=== PATIENT | female | born 1940 | race American Indian/Alaskan Native ===

== ENCOUNTER 2020-09-01 16:36 | Emergency (ER) | payer MEDICARE ==
--- NOTE | 2020-09-01 17:16 | Emergency Department Report ---
ED General Adult HPI - General Chief complaint: Medical Clearance Stated complaint: MEDICAL CLEARNCE Time Seen by Provider: 09/01/20 16:48 Source: EMS Mode of arrival: Stretcher Limitations: Altered Mental Status - History of Present Illness Initial comments: The patient presents to the emergency department from [facility] for direct admission to the geriatric psychiatric unit. Patient has a history of dementia, hypertension, schizophrenia and has homicidal and suicidal thoughts per reports. Patient was supposed to come to the emergency department on Saturday via reports but she did not arrive until today. Patient is alert and looking around the room but would not participate in the interview process. -: unknown Consistency: constant Improves with: none Worsens with: none Associated Symptoms: denies other symptoms Treatments Prior to Arrival: none - Related Data Allergies Allergy/AdvReac Type Severity Reaction Status Date / Time Fish Containing Products Allergy Unknown Verified 09/01/20 17:28 ED Review of Systems ROS: Stated complaint: MEDICAL CLEARNCE Other details as noted in HPI Comment: Unobtainable due to pts medical conditions (Dementia) ED Past Medical Hx - Social History Smoking Status: Unknown if ever smoked ED Physical Exam - General Limitations: Altered Mental Status General appearance: alert, in no apparent distress - Head Head exam: Present: atraumatic, normocephalic - Eye Eye exam: Present: normal appearance, PERRL, EOMI - ENT ENT exam: Present: mucous membranes moist - Neck Neck exam: Present: normal inspection - Respiratory Respiratory exam: Present: normal lung sounds bilaterally. Absent: respiratory distress - Cardiovascular Cardiovascular Exam: Present: regular rate, normal rhythm. Absent: systolic murmur, diastolic murmur, rubs, gallop - GI/Abdominal GI/Abdominal exam: Present: soft, normal bowel sounds. Absent: distended, tenderness - Extremities Exam Extremities exam: Present: normal inspection - Back Exam Back exam: Present: normal inspection - Neurological Exam Neurological exam: Present: alert, oriented X3, CN II-XII intact. Absent: motor sensory deficit - Psychiatric Psychiatric exam: Present: normal affect, normal mood - Skin Skin exam: Present: warm, dry, intact, normal color. Absent: rash ED Course Vital Signs 09/01/20 09/01/20 17:12 17:30 Temperature 97.7 F Pulse Rate 72 Respiratory 16 Rate Blood Pressure 140/68 [Right] O2 Sat by Pulse 96 Oximetry ED Medical Decision Making - Lab Data Result diagrams: 09/01/20 17:20 09/01/20 17:20 Lab Results 09/01/20 09/01/20 09/01/20 Range/Units 17:20 17:20 17:20 WBC 5.9 (4.5-11.0) K/mm3 RBC 4.25 (3.65-5.03) M/mm3 Hgb 13.8 (10.1-14.3) gm/dl Hct 41.4 (30.3-42.9) % MCV 97 (79-97) fl MCH 33 H (28-32) pg MCHC 33 (30-34) % RDW 14.2 (13.2-15.2) % Plt Count 175 (140-440) K/mm3 Lymph % (Auto) 37.3 H (13.4-35.0) % [place] % (Auto) 8.1 H (0.0-7.3) % Eos % (Auto) 2.7 (0.0-4.3) % Baso % (Auto) 0.5 (0.0-1.8) % Lymph # (Auto) 2.2 (1.2-5.4) K/mm3 [place] # (Auto) 0.5 (0.0-0.8) K/mm3 Eos # (Auto) 0.2 (0.0-0.4) K/mm3 Baso # (Auto) 0.0 (0.0-0.1) K/mm3 Seg Neutrophils % 51.4 (40.0-70.0) % Seg Neutrophils # 3.0 (1.8-7.7) K/mm3 Sodium 144 (137-145) mmol/L Potassium 3.4 L (3.6-5.0) mmol/L Chloride 107.1 H (98-107) mmol/L Carbon Dioxide 27 (22-30) mmol/L Anion Gap 13 mmol/L BUN 11 (7-17) mg/dL Creatinine 0.5 L (0.6-1.2) mg/dL Estimated GFR > 60 ml/min BUN/Creatinine Ratio 22 % Glucose 127 H (65-100) mg/dL Calcium 9.1 (8.4-10.2) mg/dL Total Bilirubin 0.20 (0.1-1.2) mg/dL AST 21 (5-40) units/L ALT 36 (7-56) units/L Alkaline Phosphatase 55 (35-129) units/L Total Protein 7.0 (6.3-8.2) g/dL Albumin 3.5 L (3.9-5) g/dL Albumin/Globulin Ratio 1.0 % Urine Color (Yellow) Urine Turbidity (Clear) Urine pH (5.0-7.0) Ur Specific [place] (1.003-1.030) Urine Protein (Negative) mg/dL Urine Glucose (UA) (Negative) mg/dL Urine Ketones (Negative) mg/dL Urine Blood (Negative) Urine Nitrite (Negative) Urine Bilirubin (Negative) Urine Urobilinogen (<2.0) mg/dL Ur Leukocyte Esterase (Negative) Urine WBC (Auto) (0.0-6.0) /HPF Urine RBC (Auto) (0.0-6.0) /HPF U Epithel Cells (Auto) (0-13.0) /HPF Urine Bacteria (Auto) (Negative) /HPF Urine Mucus /HPF Urine Yeast (Budding) /HPF Salicylates < 0.3 L (2.8-20.0) mg/dL Urine Opiates Screen Urine Methadone Screen Acetaminophen (10.0-30.0) ug/mL Ur Barbiturates Screen Ur Phencyclidine Scrn Ur Amphetamines Screen U Benzodiazepines Scrn Urine Cocaine Screen U Marijuana (THC) Screen Drugs of Abuse Note Plasma/Serum Alcohol (0-0.07) % 09/01/20 09/01/20 09/01/20 Range/Units 17:20 17:20 Unknown WBC (4.5-11.0) K/mm3 RBC (3.65-5.03) M/mm3 Hgb (10.1-14.3) gm/dl Hct (30.3-42.9) % MCV (79-97) fl MCH (28-32) pg MCHC (30-34) % RDW (13.2-15.2) % Plt Count (140-440) K/mm3 Lymph % (Auto) (13.4-35.0) % [place] % (Auto) (0.0-7.3) % Eos % (Auto) (0.0-4.3) % Baso % (Auto) (0.0-1.8) % Lymph # (Auto) (1.2-5.4) K/mm3 [place] # (Auto) (0.0-0.8) K/mm3 Eos # (Auto) (0.0-0.4) K/mm3 Baso # (Auto) (0.0-0.1) K/mm3 Seg Neutrophils % (40.0-70.0) % Seg Neutrophils # (1.8-7.7) K/mm3 Sodium (137-145) mmol/L Potassium (3.6-5.0) mmol/L Chloride (98-107) mmol/L Carbon Dioxide (22-30) mmol/L Anion Gap mmol/L BUN (7-17) mg/dL Creatinine (0.6-1.2) mg/dL Estimated GFR ml/min BUN/Creatinine Ratio % Glucose (65-100) mg/dL Calcium (8.4-10.2) mg/dL Total Bilirubin (0.1-1.2) mg/dL AST (5-40) units/L ALT (7-56) units/L Alkaline Phosphatase (35-129) units/L Total Protein (6.3-8.2) g/dL Albumin (3.9-5) g/dL Albumin/Globulin Ratio % Urine Color Yellow (Yellow) Urine Turbidity Slightly-cloudy (Clear) Urine pH 7.0 (5.0-7.0) Ur Specific [place] 1.013 (1.003-1.030) Urine Protein <15 mg/dl (Negative) mg/dL Urine Glucose (UA) Neg (Negative) mg/dL Urine Ketones Neg (Negative) mg/dL Urine Blood Neg (Negative) Urine Nitrite Neg (Negative) Urine Bilirubin Neg (Negative) Urine Urobilinogen 4.0 (<2.0) mg/dL Ur Leukocyte Esterase Tr (Negative) Urine WBC (Auto) 15.0 H (0.0-6.0) /HPF Urine RBC (Auto) 2.0 (0.0-6.0) /HPF U Epithel Cells (Auto) 2.0 (0-13.0) /HPF Urine Bacteria (Auto) 2+ (Negative) /HPF Urine Mucus 2+ /HPF Urine Yeast (Budding) 1+ /HPF Salicylates (2.8-20.0) mg/dL Urine Opiates Screen Urine Methadone Screen Acetaminophen 5.0 L (10.0-30.0) ug/mL Ur Barbiturates Screen Ur Phencyclidine Scrn Ur Amphetamines Screen U Benzodiazepines Scrn Urine Cocaine Screen U Marijuana (THC) Screen Drugs of Abuse Note Plasma/Serum Alcohol < 0.01 (0-0.07) % 09/01/20 Range/Units Unknown WBC (4.5-11.0) K/mm3 RBC (3.65-5.03) M/mm3 Hgb (10.1-14.3) gm/dl Hct (30.3-42.9) % MCV (79-97) fl MCH (28-32) pg MCHC (30-34) % RDW (13.2-15.2) % Plt Count (140-440) K/mm3 Lymph % (Auto) (13.4-35.0) % [place] % (Auto) (0.0-7.3) % Eos % (Auto) (0.0-4.3) % Baso % (Auto) (0.0-1.8) % Lymph # (Auto) (1.2-5.4) K/mm3 [place] # (Auto) (0.0-0.8) K/mm3 Eos # (Auto) (0.0-0.4) K/mm3 Baso # (Auto) (0.0-0.1) K/mm3 Seg Neutrophils % (40.0-70.0) % Seg Neutrophils # (1.8-7.7) K/mm3 Sodium (137-145) mmol/L Potassium (3.6-5.0) mmol/L Chloride (98-107) mmol/L Carbon Dioxide (22-30) mmol/L Anion Gap mmol/L BUN (7-17) mg/dL Creatinine (0.6-1.2) mg/dL Estimated GFR ml/min BUN/Creatinine Ratio % Glucose (65-100) mg/dL Calcium (8.4-10.2) mg/dL Total Bilirubin (0.1-1.2) mg/dL AST (5-40) units/L ALT (7-56) units/L Alkaline Phosphatase (35-129) units/L Total Protein (6.3-8.2) g/dL Albumin (3.9-5) g/dL Albumin/Globulin Ratio % Urine Color (Yellow) Urine Turbidity (Clear) Urine pH (5.0-7.0) Ur Specific [place] (1.003-1.030) Urine Protein (Negative) mg/dL Urine Glucose (UA) (Negative) mg/dL Urine Ketones (Negative) mg/dL Urine Blood (Negative) Urine Nitrite (Negative) Urine Bilirubin (Negative) Urine Urobilinogen (<2.0) mg/dL Ur Leukocyte Esterase (Negative) Urine WBC (Auto) (0.0-6.0) /HPF Urine RBC (Auto) (0.0-6.0) /HPF U Epithel Cells (Auto) (0-13.0) /HPF Urine Bacteria (Auto) (Negative) /HPF Urine Mucus /HPF Urine Yeast (Budding) /HPF Salicylates (2.8-20.0) mg/dL Urine Opiates Screen Presumptive negative Urine Methadone Screen Presumptive negative Acetaminophen (10.0-30.0) ug/mL Ur Barbiturates Screen Presumptive negative Ur Phencyclidine Scrn Presumptive negative Ur Amphetamines Screen Presumptive negative U Benzodiazepines Scrn Presumptive negative Urine Cocaine Screen Presumptive negative U Marijuana (THC) Screen Presumptive negative Drugs of Abuse Note Disclamer Plasma/Serum Alcohol (0-0.07) % - Medical Decision Making Abx given in ED Patient will be discharged to [facility] Critical care attestation.: If time is entered above; I have spent that time in minutes in the direct care of this critically ill patient, excluding procedure time. ED Disposition Clinical Impression: Dementia, Schizophrenia, UTI (urinary tract infection), Suicidal ideation Disposition: [id number]/TX-65 PSY HOSP/PSY UNIT Is pt being admited?: Yes Does the pt Need Aspirin: No Condition: Stable Referrals: PRIMARY CARE, [Primary Care Provider] - 3-5 Days
[2020-09-01 17:39] LABS: Basophils % (Auto) 0.5 % (0.0-1.8); Eosinophils # (Auto) 0.2 K/mm3 (0.0-0.4); Eosinophils % (Auto) 2.7 % (0.0-4.3); Hematocrit 41.4 % (30.3-42.9); Hemoglobin 13.8 gm/dl (10.1-14.3); Lymphocytes # (Auto) 2.2 K/mm3 (1.2-5.4); Lymphocytes % (Auto) 37.3 % (13.4-35.0); Mean Corpuscular HGB Conc 33 % (30-34); Mean Corpuscular Volume 97 fl (79-97); Monocytes # (Auto) 0.5 K/mm3 (0.0-0.8); Monocytes % (Auto) 8.1 % (0.0-7.3); Platelet Count 175 K/mm3 (140-440); Red Blood Count 4.25 M/mm3 (3.65-5.03); Red Cell Distribution Width 14.2 % (13.2-15.2)
[2020-09-01 18:02] LABS: Alanine Aminotransferase 36 units/L (7-56); Albumin 3.5 g/dL (3.9-5); Blood Urea Nitrogen 11 mg/dL (7-17); Calcium 9.1 mg/dL (8.4-10.2); Hemolysis Index 13
[2020-09-01 18:03] LABS: BUN/Creatinine Ratio 22
[2020-09-01 19:37] LABS: Bacteria,Urine 2+ /HPF (Negative); Bilirubin,Urine NEG (Negative); Blood,Urine NEG (Negative); Color,Urine Yellow (Yellow); Mucus,Urine 2+ /HPF; Protein,Urine <15 mg/dL mg/dL (Negative)
[2020-09-01 19:42] LABS: Amphetamine Screen,Urine PRESUMPTIVE NEGATIVE; Benzodiazepines Screen,Urine PRESUMPTIVE NEGATIVE; Cannabinoid Screen,Urine PRESUMPTIVE NEGATIVE; Cocaine Screen,Urine PRESUMPTIVE NEGATIVE; Methadone Screen,Urine PRESUMPTIVE NEGATIVE; Opiate Screen,Urine PRESUMPTIVE NEGATIVE
[2020-09-01] MEDS ORDERED: SULFAMETHOXAZOLE/TRIMETHOPRIM 800/160MG DS TAB PO ONE (20:03)
[2020-09-01 20:27] VITALS: BP 137/75
== END 2020-09-01 20:23 ==
LOC: ED 16:36
DX: F03.90 Unspecified dementia, unspecified severity, without behavioral disturbance, psychotic disturbance, mood disturbance, and anxiety (principal); F20.9 Schizophrenia, unspecified; N39.0 Urinary tract infection, site not specified; R45.851 Suicidal ideations; Z91.013 Allergy to seafood
CPT/HCPCS: 36415; 80053; 80307; 80320; 81001; 85025; 87086; G0480

== ENCOUNTER 2020-09-01 18:01 | Inpatient (IN) | payer MEDICARE ==
[2020-09-02 07:50] LABS: Chol/HDL Ratio 5.04 %
[2020-09-02] MEDS ORDERED: ACETAMINOPHEN 650 MG PO PRN (11:24)
[2020-09-02] MEDS ORDERED: LORazepam 0.5 MG TAB PO PRN (11:30)
--- NOTE | 2020-09-02 11:34 | History and Physical Report ---
GP History & Physical - History of Present Illness Date of admission: 09/01/20 Date of Examination: 09/02/20 Reason for Admission: Failure of Outpatient Treatment, Unable to care for self History of Present Illness: Hayde Moreau is an 80y/o female who was admitted to [facility] for verbal and psychical aggression per admission note. I attempted to interview the patient today, she doesn't respond to any questions. She looks around as I am speaking to her as If I'm not there. PAST PSYCHIATRIC HISTORY: Unable to obtain PAST MEDICAL HISTORY: None reported Family Psychiatric History: None reported or documented SOCIAL HISTORY Unable to obtain REVIEW OF SYSTEMS Unable to obtain MENTAL STATUS EXAMINATION Unable to obtain Assessment and Plan (1) Dementia with Behavioral Disturbance Current Visit: Yes Status: Acute Treatment Plan Patient admitted for inpatient psychiatric evaluation, medication adjustment and close monitoring The patient's behavior, mood, sleep and appetite will be closely monitored. Patient enrolled in individual and group therapeutic sessions and encouraged to attend. Patient provided with a safe and structured environment. Patient's physical health needs will be addressed by the Hospitalist. Hospitalist Consulted Labs including CBC, CMP, Lipid profile and Hemoglobin A1C levels ordered for baseline reference Restarted home meds Social Assessment will be completed and the Mold Insert Changer will work with patient and family to ensure a suitable and safe disposition Medication adjustment will be made as clinically indicated Usual Wellness Anglican/Preservation: - Start Trazodone 50 mg po QHS & 50 mg po QHS PRN between 10 PM & 2 AM for insomnia - Start Melatonin 5 mg po QHS to promote circadian rhythm - Start [place]-3 for brain health, reduce impulsivity, and as adjunctive treatment for mood disorder, continue upon discharge given overall benefits. - Start B1 prophylaxis with 200 mg po for 5 days Estimated days: 5 Post hospital care: primary care provider, psychiatric provider Legal Status: Voluntary Reaction to Hospitalization: Accepting Legal Status: Voluntary Reaction to Hospitalization: Accepting Medications and Allergies Allergies Allergy/AdvReac Type Severity Reaction Status Date / Time Fish Containing Products Allergy Unknown Verified 09/01/20 17:28 Home Medications Medication Instructions Recorded Confirmed Last Taken Type Acetaminophen [Tylenol] 650 mg PO Q4HR PRN 09/02/20 09/02/20 Unknown History Divalproex Sprinkle [DepaKOTE 250 mg PO TID 09/02/20 09/02/20 Unknown History SPRINKLE] Haloperidol Lactate 0.25 ml PO DAILY 09/02/20 09/02/20 Unknown History LORazepam [Lorazepam] 0.25 mg PO Q12HR PRN 09/02/20 09/02/20 Unknown History Melatonin 5 mg PO HS 09/02/20 09/02/20 Unknown History Memantine [Namenda] 10 mg PO DAILY 09/02/20 09/02/20 Unknown History amLODIPine [Norvasc] 10 mg PO DAILY 09/02/20 09/02/20 Unknown History donepeziL [Aricept] 10 mg PO HS 09/02/20 09/02/20 Unknown History Active Meds: Active Medications Acetaminophen (Tylenol) 650 mg PO Q4H PRN PRN Reason: Pain, Mild (1-3) Amlodipine Besylate (Amlodipine) 10 mg PO DAILY [facility] Divalproex Sodium (Depakote Sprinkle) 250 mg PO TID [facility] Donepezil HCl (Aricept) 10 mg PO HS [facility] Haloperidol Lactate (Haldol) 0.5 mg PO DAILY [facility] Lorazepam (Ativan) 0.25 mg PO Q12HR PRN PRN Reason: Anxiety Melatonin (Melatonin) 5 mg PO QHS [facility] Memantine (Memantine) 10 mg PO DAILY [facility] Miscellaneous Medication (Acetaminophen [Tylenol]) 650 mg PO Q4HR PRN PRN Reason: Pain, Mild (1-3) Results - Results Labs/Vitals: Laboratory Last Values Hemoglobin A1c 5.7 % (4-6) 09/02/20 06:43 Triglycerides 80 mg/dL (2-149) 09/02/20 06:43 Cholesterol 217 mg/dL (50-199) H 09/02/20 06:43 LDL Cholesterol Direct 161 mg/dL (50-130) H 09/02/20 06:43 HDL Cholesterol 43 mg/dL (40-59) 09/02/20 06:43 Cholesterol/HDL Ratio 5.04 % 09/02/20 06:43 TSH 1.900 mlU/mL (0.270-4.200) 09/02/20 06:43 Last Vital Signs Temp 97.4 F L 09/02/20 07:01 Pulse 60 09/02/20 07:01 Resp 16 09/02/20 07:01 BP 114/61 09/02/20 07:01 Pulse Ox 97 09/02/20 07:01 Physical Examination - Constitutional Vitals: Vital Signs Temp Pulse Resp BP Pulse Ox 97.4 F L 60 16 114/61 97 09/02/20 07:01 09/02/20 07:01 09/02/20 07:01 09/02/20 07:01 09/02/20 07:01 Temperature -Last 24 Hours Temperature 97.4 F Temperature 97.8 F Mental Status Exam - Vital signs Last Vital Signs Temp 97.4 F L 09/02/20 07:01 Pulse 60 09/02/20 07:01 Resp 16 09/02/20 07:01 BP 114/61 09/02/20 07:01 Pulse Ox 97 09/02/20 07:01 Physician Certification - Certification Statement Physician Certification Statement: This is an acknowledgement statement that HAYDE MOREAU is a 80 year old F who requires inpatient psychiatric admission for treatment which could reasonably be expected to improve the patient's condition for Estimated period of time patient will need to remain in the hospital: [ ] Plan for post-hospital care: [ ]
[2020-09-02] MEDS ORDERED: ACETAMINOPHEN 325 MG TAB PO PRN (12:00)
--- NOTE | 2020-09-02 12:07 | Consultation ---
History of Present Illness - Reason for Consult Consult date: 09/02/20 Requesting physician: JOSE DÍAZ - History of Present Illness 80 YO Female with Cerebral Atherosclerosis, Vascular Dementia with Bahevioral Disturbance admitted to [facility] for Psychiatric stabilization. Patient seen and evaluated in the recreation room. Patient minimally cooperative with exam and interview. No reported nursing events. Past History Past Medical History: other (See HPI) Past Surgical History: No surgical history, Other (Reviewed) Social history: single Family history: no significant family history Medications and Allergies Allergies Allergy/AdvReac Type Severity Reaction Status Date / Time Fish Containing Products Allergy Unknown Verified 09/01/20 17:28 Home Medications Medication Instructions Recorded Confirmed Last Taken Type Acetaminophen [Tylenol] 650 mg PO Q4HR PRN 09/02/20 09/02/20 Unknown History Divalproex Sprinkle [DepaKOTE 250 mg PO TID 09/02/20 09/02/20 Unknown History SPRINKLE] Haloperidol Lactate 0.25 ml PO DAILY 09/02/20 09/02/20 Unknown History LORazepam [Lorazepam] 0.25 mg PO Q12HR PRN 09/02/20 09/02/20 Unknown History Melatonin 5 mg PO HS 09/02/20 09/02/20 Unknown History Memantine [Namenda] 10 mg PO DAILY 09/02/20 09/02/20 Unknown History amLODIPine [Norvasc] 10 mg PO DAILY 09/02/20 09/02/20 Unknown History donepeziL [Aricept] 10 mg PO HS 09/02/20 09/02/20 Unknown History Active Meds: Active Medications Acetaminophen (Tylenol) 650 mg PO Q4H PRN PRN Reason: Pain, Mild (1-3) Amlodipine Besylate (Amlodipine) 10 mg PO DAILY [facility] Divalproex Sodium (Depakote Sprinkle) 250 mg PO TID [facility] Donepezil HCl (Aricept) 10 mg PO HS [facility] Haloperidol Lactate (Haldol) 0.5 mg PO DAILY [facility] Lorazepam (Ativan) 0.25 mg PO Q12HR PRN PRN Reason: Anxiety Melatonin (Melatonin) 5 mg PO QHS [facility] Memantine (Memantine) 10 mg PO DAILY FIDENC[facility] Review of Systems ROS unobtainable: due to mental status Exam - Constitutional Vitals: Temp Pulse Resp BP Pulse Ox 97.4 F L 60 16 114/61 97 09/02/20 07:01 09/02/20 07:01 09/02/20 07:01 09/02/20 07:01 09/02/20 07:01 General appearance: Present: no acute distress, well-nourished - EENT Eyes: Present: PERRL ENT: clear oral mucosa, hearing decreased - Neck Neck: Present: supple, normal ROM - Respiratory Respiratory effort: normal Respiratory: bilateral: CTA - Cardiovascular Heart Sounds: Present: S1 & S2. Absent: rub, click - Extremities Extremities: pulses symmetrical, No edema Peripheral Pulses: within normal limits - Abdominal General gastrointestinal: Present: soft, non-tender, non-distended, normal bowel sounds Female genitourinary: Present: normal - Integumentary Integumentary: Present: clear, warm, dry - Musculoskeletal Musculoskeletal: generalized weakness - Neurologic Neurologic: CNII-XII intact, moves all extremities Results - Labs Labs: Abnormal lab results 09/02/20 Range/Units 06:43 Cholesterol 217 H (50-199) mg/dL LDL Cholesterol Direct 161 H (50-130) mg/dL Assessment and Plan - Patient Problems (1) Vascular dementia of acute onset with behavioral disturbance Current Visit: Yes Status: Acute Plan to address problem: Verbal prompting, verbal redirection, benzodiazepine therapy as clinically indicated, (2) Cerebral atherosclerosis Current Visit: Yes Status: Acute Plan to address problem: Supportive care, risk factor reduction, low-cholesterol diet.
[2020-09-02 12:21] LABS: Hepatitis B Surface Antigen Non-Reactive (Negative); Hepatitis C Virus Antibody Non-Reactive (NonReactive)
[2020-09-02] MEDS: amLODIPine 10 MG TAB PO SCH (12:32)
[2020-09-02] MEDS: HALOPERIDOL LACTATE 10 MG/5 ML ORAL LIQD PO SCH (12:33)
[2020-09-02] MEDS: MEMANTINE 10 MG TAB PO SCH (12:33)
[2020-09-02] MEDS: DIVALPROEX SPRINKLE 125 MG CAP PO SCH ×2 (13:35→20:27)
[2020-09-02] MEDS: DONEPEZIL 10 MG TAB PO SCH (21:23)
[2020-09-02] MEDS: MELATONIN 5 MG TAB PO SCH (21:24)
[2020-09-02] MEDS ORDERED: NON-FORMULARY EACH (Melatonin 5 MG) PO SCH (22:00)
--- NOTE | 2020-09-03 09:15 | Progress Note ---
Subjective Date of service: 09/03/20 Principal diagnosis: Dementia with Behavioral Distrubance Subjective Comment: During my interview with the patient, she is lying down. She is confused. She's calm. She says she's "fine" when asked. After that she begins to mumble and make incomprehensible sounds. REVIEW OF SYSTEMS Unable to obtain MENTAL STATUS EXAMINATION Unable to obtain Assessment and Plan (1) Dementia with Behavioral Disturbance Current Visit: Yes Status: Acute Treatment Plan Patient admitted for inpatient psychiatric evaluation, medication adjustment and close monitoring The patient's behavior, mood, sleep and appetite will be closely monitored. Patient enrolled in individual and group therapeutic sessions and encouraged to attend. Patient provided with a safe and structured environment. Patient's physical health needs will be addressed by the Hospitalist. Hospitalist Consulted Labs including CBC, CMP, Lipid profile and Hemoglobin A1C levels ordered for baseline reference Started Risperidone 0.25mg po BID Social Assessment will be completed and the Conformal Pad Former will work with patient and family to ensure a suitable and safe disposition Medication adjustment will be made as clinically indicated Usual Wellness Hoahaoism/Preservation: - Start Trazodone 50 mg po QHS & 50 mg po QHS PRN between 10 PM & 2 AM for insomnia - Start Melatonin 5 mg po QHS to promote circadian rhythm - Start [place]-3 for brain health, reduce impulsivity, and as adjunctive treatment for mood disorder, continue upon discharge given overall benefits. - Start B1 prophylaxis with 200 mg po for 5 days Estimated days: 5 Post hospital care: primary care provider, psychiatric provider Legal Status: Voluntary Reaction to Hospitalization: Accepting Medications and Allergies Allergies Allergy/AdvReac Type Severity Reaction Status Date / Time Fish Containing Products Allergy Unknown Verified 09/01/20 17:28 Home Medications Medication Instructions Recorded Confirmed Last Taken Type Acetaminophen [Tylenol] 650 mg PO Q4HR PRN 09/02/20 09/02/20 Unknown History Divalproex Sprinkle [DepaKOTE 250 mg PO TID 09/02/20 09/02/20 Unknown History SPRINKLE] Haloperidol Lactate 0.25 ml PO DAILY 09/02/20 09/02/20 Unknown History LORazepam [Lorazepam] 0.25 mg PO Q12HR PRN 09/02/20 09/02/20 Unknown History Melatonin 5 mg PO HS 09/02/20 09/02/20 Unknown History Memantine [Namenda] 10 mg PO DAILY 09/02/20 09/02/20 Unknown History amLODIPine [Norvasc] 10 mg PO DAILY 09/02/20 09/02/20 Unknown History donepeziL [Aricept] 10 mg PO HS 09/02/20 09/02/20 Unknown History Active Meds: Active Medications Acetaminophen (Tylenol) 650 mg PO Q4H PRN PRN Reason: Pain, Mild (1-3) Amlodipine Besylate (Amlodipine) 10 mg PO DAILY [facility] Last Admin: 09/02/20 12:32 Dose: 10 mg Documented by: Divalproex Sodium (Depakote Sprinkle) 250 mg PO TID [facility] Last Admin: 09/02/20 20:27 Dose: 250 mg Documented by: Donepezil HCl (Aricept) 10 mg PO [facility] Last Admin: 09/02/20 21:23 Dose: 10 mg Documented by: Haloperidol Lactate (Haldol) 0.5 mg PO DAILY [facility] Last Admin: 09/02/20 12:33 Dose: 0.5 mg Documented by: Lorazepam (Ativan) 0.25 mg PO Q12HR PRN PRN Reason: Anxiety Melatonin (Melatonin) 5 mg PO QHS [facility] Last Admin: 09/02/20 21:24 Dose: 5 mg Documented by: Memantine (Memantine) 10 mg PO DAILY [facility] Last Admin: 09/02/20 12:33 Dose: 10 mg Documented by: Results - Results Labs/Vitals: Laboratory Last Values Hemoglobin A1c 5.7 % (4-6) 09/02/20 06:43 Triglycerides 80 mg/dL (2-149) 09/02/20 06:43 Cholesterol 217 mg/dL (50-199) H 09/02/20 06:43 LDL Cholesterol Direct 161 mg/dL (50-130) H 09/02/20 06:43 HDL Cholesterol 43 mg/dL (40-59) 09/02/20 06:43 Cholesterol/HDL Ratio 5.04 % 09/02/20 06:43 TSH 1.900 mlU/mL (0.270-4.200) 09/02/20 06:43 Hepatitis A IgM Ab Non-reactive (NonReactive) 09/02/20 06:43 Hep Bs Antigen Non-reactive (Negative) 09/02/20 06:43 Hep B Core IgM Ab Non-reactive (NonReactive) 09/02/20 06:43 Hepatitis C Antibody Non-reactive (NonReactive) 09/02/20 06:43 Last Vital Signs Temp 98.7 F 09/02/20 19:16 Pulse 68 09/02/20 21:39 Resp 20 09/02/20 19:16 BP 137/60 09/02/20 19:16 Pulse Ox 97 09/02/20 21:39
[2020-09-03] MEDS: amLODIPine 10 MG TAB PO SCH (10:40)
[2020-09-03] MEDS: MEMANTINE 10 MG TAB PO SCH (10:43)
[2020-09-03] MEDS: risperiDONE 0.25 MG TAB PO SCH ×2 (10:43→21:20)
[2020-09-03] MEDS: DIVALPROEX SPRINKLE 125 MG CAP PO SCH ×3 (10:43→20:12)
[2020-09-03] MEDS: HALOPERIDOL LACTATE 10 MG/5 ML ORAL LIQD PO SCH (10:44)
[2020-09-03] MEDS: DONEPEZIL 10 MG TAB PO SCH (21:19)
[2020-09-03] MEDS: MELATONIN 5 MG TAB PO SCH (21:19)
--- NOTE | 2020-09-04 09:36 | Progress Note ---
Subjective Date of service: 09/04/20 Principal diagnosis: Dementia with Behavioral Distrubance Subjective Comment: During my interview with the patient, she is sitting in the dayroom being fed by the tech. She is confused and mumbles. She is unable to give any insight as to how she feels. She makes some eye contact as I'm speaking to her. She says she feels "fine" when asked. Her answers after that are incomprehensible. REVIEW OF SYSTEMS Unable to obtain MENTAL STATUS EXAMINATION Unable to obtain Assessment and Plan (1) Dementia with Behavioral Disturbance Current Visit: Yes Status: Acute Treatment Plan Patient admitted for inpatient psychiatric evaluation, medication adjustment and close monitoring The patient's behavior, mood, sleep and appetite will be closely monitored. Patient enrolled in individual and group therapeutic sessions and encouraged to attend. Patient provided with a safe and structured environment. Patient's physical health needs will be addressed by the Hospitalist. Hospitalist Consulted Labs including CBC, CMP, Lipid profile and Hemoglobin A1C levels ordered for baseline reference Started Risperidone 0.25mg po BID yesterday No changes today Social Assessment will be completed and the Heater Furnace will work with patient and family to ensure a suitable and safe disposition Medication adjustment will be made as clinically indicated Usual Wellness Sikhism/Preservation: - Start Trazodone 50 mg po QHS & 50 mg po QHS PRN between 10 PM & 2 AM for insomnia - Start Melatonin 5 mg po QHS to promote circadian rhythm - Start [place]-3 for brain health, reduce impulsivity, and as adjunctive treatment for mood disorder, continue upon discharge given overall benefits. - Start B1 prophylaxis with 200 mg po for 5 days Estimated days: 4 Post hospital care: primary care provider, psychiatric provider Legal Status: Voluntary Reaction to Hospitalization: Accepting Medications and Allergies Allergies Allergy/AdvReac Type Severity Reaction Status Date / Time Fish Containing Products Allergy Unknown Verified 09/01/20 17:28 Home Medications Medication Instructions Recorded Confirmed Last Taken Type Acetaminophen [Tylenol] 650 mg PO Q4HR PRN 09/02/20 09/02/20 Unknown History Divalproex Sprinkle [DepaKOTE 250 mg PO TID 09/02/20 09/02/20 Unknown History SPRINKLE] Haloperidol Lactate 0.25 ml PO DAILY 09/02/20 09/02/20 Unknown History LORazepam [Lorazepam] 0.25 mg PO Q12HR PRN 09/02/20 09/02/20 Unknown History Melatonin 5 mg PO HS 09/02/20 09/02/20 Unknown History Memantine [Namenda] 10 mg PO DAILY 09/02/20 09/02/20 Unknown History amLODIPine [Norvasc] 10 mg PO DAILY 09/02/20 09/02/20 Unknown History donepeziL [Aricept] 10 mg PO HS 09/02/20 09/02/20 Unknown History Active Meds: Active Medications Acetaminophen (Tylenol) 650 mg PO Q4H PRN PRN Reason: Pain, Mild (1-3) Amlodipine Besylate (Amlodipine) 10 mg PO DAILY [facility] Last Admin: 09/03/20 10:40 Dose: 10 mg Documented by: Divalproex Sodium (Depakote Sprinkle) 250 mg PO TID [facility] Last Admin: 09/03/20 20:12 Dose: 250 mg Documented by: Donepezil HCl (Aricept) 10 mg PO HS [facility] Last Admin: 09/03/20 21:19 Dose: 10 mg Documented by: Haloperidol Lactate (Haldol) 0.5 mg PO DAILY [facility] Last Admin: 09/03/20 10:44 Dose: 0.5 mg Documented by: Lorazepam (Ativan) 0.25 mg PO Q12HR PRN PRN Reason: Anxiety Melatonin (Melatonin) 5 mg PO QHS [facility] Last Admin: 09/03/20 21:19 Dose: 5 mg Documented by: Memantine (Memantine) 10 mg PO DAILY [facility] Last Admin: 09/03/20 10:43 Dose: 10 mg Documented by: Risperidone (Risperdal) 0.25 mg PO BID [facility] Last Admin: 09/03/20 21:20 Dose: 0.25 mg Documented by: Results - Results Labs/Vitals: Laboratory Last Values Hemoglobin A1c 5.7 % (4-6) 09/02/20 06:43 Triglycerides 80 mg/dL (2-149) 09/02/20 06:43 Cholesterol 217 mg/dL (50-199) H 09/02/20 06:43 LDL Cholesterol Direct 161 mg/dL (50-130) H 09/02/20 06:43 HDL Cholesterol 43 mg/dL (40-59) 09/02/20 06:43 Cholesterol/HDL Ratio 5.04 % 09/02/20 06:43 TSH 1.900 mlU/mL (0.270-4.200) 09/02/20 06:43 Hepatitis A IgM Ab Non-reactive (NonReactive) 09/02/20 06:43 Hep Bs Antigen Non-reactive (Negative) 09/02/20 06:43 Hep B Core IgM Ab Non-reactive (NonReactive) 09/02/20 06:43 Hepatitis C Antibody Non-reactive (NonReactive) 09/02/20 06:43 Last Vital Signs Temp 98.4 F 09/03/20 19:26 Pulse 74 09/03/20 19:26 Resp 20 09/03/20 19:26 BP 155/79 09/03/20 19:26 Pulse Ox 98 09/03/20 19:26
[2020-09-04] MEDS: risperiDONE 0.25 MG TAB PO SCH ×2 (10:19→21:09)
[2020-09-04] MEDS: MEMANTINE 10 MG TAB PO SCH (10:19)
[2020-09-04] MEDS: DIVALPROEX SPRINKLE 125 MG CAP PO SCH ×3 (10:19→20:29)
[2020-09-04] MEDS: HALOPERIDOL LACTATE 10 MG/5 ML ORAL LIQD PO SCH (10:21)
[2020-09-04] MEDS: amLODIPine 10 MG TAB PO SCH (10:25)
--- NOTE | 2020-09-04 18:38 | Progress Note ---
Assessment and Plan - Patient Problems (1) Vascular dementia of acute onset with behavioral disturbance Current Visit: Yes Status: Acute Plan to address problem: Verbal prompting, verbal redirection, benzodiazepine therapy as clinically indicated, (2) Cerebral atherosclerosis Current Visit: Yes Status: Acute Plan to address problem: Supportive care, risk factor reduction, low-cholesterol diet. History Interval history: 80 YO Female with Cerebral Atherosclerosis, Vascular Dementia with Behavioral Disturbance admitted to [facility] for Psychiatric stabilization. Patient seen and evaluated in the recreation room. Patient minimally cooperative with exam and interview. No reported nursing events. Patient reports wanting to see a dentist to have her teeth checked out "" Hospitalist Physical - Constitutional Vitals: Temp Pulse Resp BP Pulse Ox 98.4 F 70 20 93/62 98 09/03/20 19:26 09/04/20 10:25 09/03/20 19:26 09/04/20 10:25 09/03/20 19:26 General appearance: Present: no acute distress, well-nourished - EENT Eyes: Present: PERRL ENT: hearing intact - Neck Neck: Present: supple - Respiratory Respiratory: bilateral: CTA - Cardiovascular Rhythm: regular - Extremities Extremities: no ischemia Peripheral Pulses: within normal limits - Abdominal General gastrointestinal: soft, non-tender, non-distended - Integumentary Integumentary: Present: clear, dry - Psychiatric Psychiatric: cooperative - Neurologic Neurologic: CNII-XII intact Results - Labs Labs: Laboratory Last Values Hemoglobin A1c 5.7 % (4-6) 09/02/20 06:43 Triglycerides 80 mg/dL (2-149) 09/02/20 06:43 Cholesterol 217 mg/dL (50-199) H 09/02/20 06:43 LDL Cholesterol Direct 161 mg/dL (50-130) H 09/02/20 06:43 HDL Cholesterol 43 mg/dL (40-59) 09/02/20 06:43 Cholesterol/HDL Ratio 5.04 % 09/02/20 06:43 TSH 1.900 mlU/mL (0.270-4.200) 09/02/20 06:43 Hepatitis A IgM Ab Non-reactive (NonReactive) 09/02/20 06:43 Hep Bs Antigen Non-reactive (Negative) 09/02/20 06:43 Hep B Core IgM Ab Non-reactive (NonReactive) 09/02/20 06:43 Hepatitis C Antibody Non-reactive (NonReactive) 09/02/20 06:43 Luke/IV: Voiding Method Diaper Active Medications - Current Medications Current Medications: Generic Name Dose Route Start Last Admin Trade Name Freq PRN Reason Stop Dose Admin Acetaminophen 650 mg 09/02/20 12:00 Tylenol PO Q4H PRN Pain, Mild (1-3) Amlodipine Besylate 10 mg 09/02/20 12:00 09/04/20 10:25 Amlodipine PO Not Given DAILY [facility] Divalproex Sodium 250 mg 09/02/20 14:00 09/04/20 14:24 Depakote Sprinkle PO 250 mg TID [facility] Administration Donepezil HCl 10 mg 09/02/20 22:00 09/03/20 21:19 Aricept PO 10 mg HS [facility] Administration Haloperidol Lactate 0.5 mg 09/02/20 12:00 09/04/20 10:21 Haldol PO 0.5 mg DAILY [facility] Administration Lorazepam 0.25 mg 09/02/20 11:30 Ativan PO Q12HR PRN Anxiety Melatonin 5 mg 09/02/20 22:00 09/03/20 21:19 Melatonin PO 5 mg QHS [facility] Administration Memantine 10 mg 09/02/20 12:00 09/04/20 10:19 Memantine PO 10 mg DAILY [facility] Administration Risperidone 0.25 mg 09/03/20 10:00 09/04/20 10:19 Risperdal PO 0.25 mg BID [facility] Administration Nutrition/Malnutrition Assess - Dietary Evaluation Nutrition/Malnutrition Findings: Nutrition Notes Start: 09/02/20 10:53 [place]: Status: Active Protocol: Document 09/02/20 10:53 CASSI (Rec: 09/02/20 11:06 CASSI [id number]) Co-Sign 09/02/20 10:53 LM Nutrition Notes Need for Assessment generated from: MD Order Initial or Follow up Assessment Other Pertinent Diagnosis dementia, schizophrenia, suicidal ideation, UTI Current Diet Regular Labs/Tests Reviewed Pertinent Medications Reviewed Height 5 ft 6 in Weight 74.12 kg [place] Body Weight (kg) 59.09 BMI 26.4 Weight Status Appropriate Subjective/Other Information MD consult for poor intake. Unable to speak with pt d/t AMS. Per RN, pt consuming 35% meals, difficulty chewing d/t missing teeth. RN requested clear Ensure. Burn Absent Trauma Absent Difficulty In Chewing Food Allergy Yes Current % PO Poor (25-49%) Minimum of two criteria No Muscle Mass Mild Depletion (non-severe) #1 Nutrition Diagnosis Inadequate oral intake Etiology difficulty chewing As Evidenced by Signs and Symptoms pt consuming 35% meals Is patient on ventilator? No Is Patient Ambulatory and/or Out of Bed Yes REE-([facility]-ambulatory/OOB) [ [id number] [id number]] Calculation Used for Recommendations [facility] Additional Notes Pro:74-89 g (1-1.2 g/kg) Fluid: 1 ml/kcal Nutrition Intervention Change Diet Order: Pureed diet Add Supplement/Snack (indicate name/kcal Ensure Clear Daily /protein ) Provides kCal: 240 Provides Protein (gm) 8 Goal #1 Meet at least 80% energy and protein needs via PO and ONS intakes Anticipated Discharge Needs: Unable to determine at this time Follow-Up By: 09/05/20 Additional Comments F/U for intakes and diet tolerance
[2020-09-04] MEDS: MELATONIN 5 MG TAB PO SCH (21:09)
[2020-09-04] MEDS: DONEPEZIL 10 MG TAB PO SCH (21:09)
[2020-09-05] MEDS: DIVALPROEX SPRINKLE 125 MG CAP PO SCH ×3 (08:54→21:30)
[2020-09-05] MEDS: HALOPERIDOL LACTATE 10 MG/5 ML ORAL LIQD PO SCH (09:43)
[2020-09-05] MEDS: amLODIPine 10 MG TAB PO SCH (09:48)
[2020-09-05] MEDS: risperiDONE 0.25 MG TAB PO SCH ×2 (09:49→22:14)
[2020-09-05] MEDS: MEMANTINE 10 MG TAB PO SCH (09:50)
--- NOTE | 2020-09-05 12:38 | Progress Note ---
Subjective Date of service: 09/05/20 Principal diagnosis: Dementia with Behavioral Distrubance Subjective Comment: During my interview with the patient, she is sitting in the dayroom. She is confused and mumbles. She is unable to give any insight as to how she feels. She makes some eye contact as I'm speaking to her. She says she feels "alright." She's attempting to say something else but it's incomprehensible. The patient is mumbling and looking around. REVIEW OF SYSTEMS Unable to obtain MENTAL STATUS EXAMINATION Unable to obtain Assessment and Plan (1) Dementia with Behavioral Disturbance Current Visit: Yes Status: Acute Treatment Plan Patient admitted for inpatient psychiatric evaluation, medication adjustment and close monitoring The patient's behavior, mood, sleep and appetite will be closely monitored. Patient enrolled in individual and group therapeutic sessions and encouraged to attend. Patient provided with a safe and structured environment. Patient's physical health needs will be addressed by the Hospitalist. Hospitalist Consulted Labs including CBC, CMP, Lipid profile and Hemoglobin A1C levels ordered for baseline reference Increased Risperidone 0.5mg po BID Social Assessment will be completed and the Plastic Surgery Specialist will work with patient and family to ensure a suitable and safe disposition Medication adjustment will be made as clinically indicated Usual Wellness Roman Catholic/Preservation: - Start Trazodone 50 mg po QHS & 50 mg po QHS PRN between 10 PM & 2 AM for insomnia - Start Melatonin 5 mg po QHS to promote circadian rhythm - Start [place]-3 for brain health, reduce impulsivity, and as adjunctive treatment for mood disorder, continue upon discharge given overall benefits. - Start B1 prophylaxis with 200 mg po for 5 days Estimated days: 4 Post hospital care: primary care provider, psychiatric provider Legal Status: Voluntary Reaction to Hospitalization: Accepting Medications and Allergies Allergies Allergy/AdvReac Type Severity Reaction Status Date / Time Fish Containing Products Allergy Unknown Verified 09/01/20 17:28 Home Medications Medication Instructions Recorded Confirmed Last Taken Type Acetaminophen [Tylenol] 650 mg PO Q4HR PRN 09/02/20 09/02/20 Unknown History Divalproex Sprinkle [DepaKOTE 250 mg PO TID 09/02/20 09/02/20 Unknown History SPRINKLE] Haloperidol Lactate 0.25 ml PO DAILY 09/02/20 09/02/20 Unknown History LORazepam [Lorazepam] 0.25 mg PO Q12HR PRN 09/02/20 09/02/20 Unknown History Melatonin 5 mg PO HS 09/02/20 09/02/20 Unknown History Memantine [Namenda] 10 mg PO DAILY 09/02/20 09/02/20 Unknown History amLODIPine [Norvasc] 10 mg PO DAILY 09/02/20 09/02/20 Unknown History donepeziL [Aricept] 10 mg PO HS 09/02/20 09/02/20 Unknown History Active Meds: Active Medications Acetaminophen (Tylenol) 650 mg PO Q4H PRN PRN Reason: Pain, Mild (1-3) Amlodipine Besylate (Amlodipine) 10 mg PO DAILY [facility] Last Admin: 09/05/20 09:48 Dose: 10 mg Documented by: Divalproex Sodium (Depakote Sprinkle) 250 mg PO TID [facility] Last Admin: 09/05/20 08:54 Dose: 250 mg Documented by: Donepezil HCl (Aricept) 10 mg PO HS [facility] Last Admin: 09/04/20 21:09 Dose: 10 mg Documented by: Haloperidol Lactate (Haldol) 0.5 mg PO DAILY [facility] Last Admin: 09/05/20 09:43 Dose: 0.5 mg Documented by: Lorazepam (Ativan) 0.25 mg PO Q12HR PRN PRN Reason: Anxiety Melatonin (Melatonin) 5 mg PO QHS [facility] Last Admin: 09/04/20 21:09 Dose: 5 mg Documented by: Memantine (Memantine) 10 mg PO DAILY [facility] Last Admin: 09/05/20 09:50 Dose: 10 mg Documented by: Risperidone (Risperdal) 0.25 mg PO BID [facility] Last Admin: 09/05/20 09:49 Dose: 0.25 mg Documented by: Results - Results Labs/Vitals: Laboratory Last Values Hemoglobin A1c 5.7 % (4-6) 09/02/20 06:43 Triglycerides 80 mg/dL (2-149) 09/02/20 06:43 Cholesterol 217 mg/dL (50-199) H 09/02/20 06:43 LDL Cholesterol Direct 161 mg/dL (50-130) H 09/02/20 06:43 HDL Cholesterol 43 mg/dL (40-59) 09/02/20 06:43 Cholesterol/HDL Ratio 5.04 % 09/02/20 06:43 TSH 1.900 mlU/mL (0.270-4.200) 09/02/20 06:43 Hepatitis A IgM Ab Non-reactive (NonReactive) 09/02/20 06:43 Hep Bs Antigen Non-reactive (Negative) 09/02/20 06:43 Hep B Core IgM Ab Non-reactive (NonReactive) 09/02/20 06:43 Hepatitis C Antibody Non-reactive (NonReactive) 09/02/20 06:43 Last Vital Signs Temp 97.9 F 09/04/20 08:51 Pulse 83 09/05/20 09:48 Resp 18 09/04/20 08:51 BP 108/64 09/05/20 09:48 Pulse Ox 97 09/04/20 08:51
[2020-09-05] MEDS: DONEPEZIL 10 MG TAB PO SCH (22:14)
[2020-09-05] MEDS: MELATONIN 5 MG TAB PO SCH (22:15)
[2020-09-06] MEDS: DIVALPROEX SPRINKLE 125 MG CAP PO SCH ×3 (09:54→20:33)
[2020-09-06] MEDS: risperiDONE 0.25 MG TAB PO SCH ×2 (09:55→21:33)
[2020-09-06] MEDS: MEMANTINE 10 MG TAB PO SCH (09:55)
[2020-09-06] MEDS: amLODIPine 10 MG TAB PO SCH (09:56)
[2020-09-06] MEDS: HALOPERIDOL LACTATE 10 MG/5 ML ORAL LIQD PO SCH (09:56)
--- NOTE | 2020-09-06 11:35 | Progress Note ---
Subjective Date of service: 09/06/20 Principal diagnosis: Dementia with Behavioral Distrubance Subjective Comment: During my interview with the patient, is lying in bed. She is awake. She is calm and cooperative. When asked how was she feeling she says, "I'm alright my eye just hurting." She points to her eye. There is not obvious problems: no redness or tearing of her eye. She starts mumbling and just staring at me as I continue to talk to her. REVIEW OF SYSTEMS Unable to obtain MENTAL STATUS EXAMINATION Unable to obtain Assessment and Plan (1) Dementia with Behavioral Disturbance Current Visit: Yes Status: Acute Treatment Plan Patient admitted for inpatient psychiatric evaluation, medication adjustment and close monitoring The patient's behavior, mood, sleep and appetite will be closely monitored. Patient enrolled in individual and group therapeutic sessions and encouraged to attend. Patient provided with a safe and structured environment. Patient's physical health needs will be addressed by the Hospitalist. Hospitalist Consulted Labs including CBC, CMP, Lipid profile and Hemoglobin A1C levels ordered for melanie duran reference Increased Risperidone 0.5mg po BID Yesterday No changes made today Social Assessment will be completed and the Telecommunications Cable Jointer will work with john t and family to ensure a suitable and safe disposition Medication adjustment will be made as clinically indicated Usual Wellness Mosque/Preservation: - Start Trazodone 50 mg po QHS & 50 mg po QHS PRN between 10 PM & 2 AM for insomnia - Start Melatonin 5 mg po QHS to promote circadian rhythm - Start [place]-3 for brain health, reduce impulsivity, and as adjunctive treatment for mood disorder, continue upon discharge given overall benefits. - Start B1 prophylaxis with 200 mg po for 5 days Estimated days: 4 Post hospital care: primary care provider, psychiatric provider Medications and Allergies Allergies Allergy/AdvReac Type Severity Reaction Status Date / Time Fish Containing Products Allergy Unknown Verified 09/01/20 17:28 Home Medications Medication Instructions Recorded Confirmed Last Taken Type Acetaminophen [Tylenol] 650 mg PO Q4HR PRN 09/02/20 09/02/20 Unknown History Divalproex Sprinkle [DepaKOTE 250 mg PO TID 09/02/20 09/02/20 Unknown History SPRINKLE] Haloperidol Lactate 0.25 ml PO DAILY 09/02/20 09/02/20 Unknown History LORazepam [Lorazepam] 0.25 mg PO Q12HR PRN 09/02/20 09/02/20 Unknown History Melatonin 5 mg PO HS 09/02/20 09/02/20 Unknown History Memantine [Namenda] 10 mg PO DAILY 09/02/20 09/02/20 Unknown History amLODIPine [Norvasc] 10 mg PO DAILY 09/02/20 09/02/20 Unknown History donepeziL [Aricept] 10 mg PO HS 09/02/20 09/02/20 Unknown History Active Meds: Active Medications Acetaminophen (Tylenol) 650 mg PO Q4H PRN PRN Reason: Pain, Mild (1-3) Amlodipine Besylate (Amlodipine) 10 mg PO DAILY [facility] Last Admin: 09/06/20 09:56 Dose: 10 mg Documented by: Divalproex Sodium (Depakote Sprinkle) 250 mg PO TID [facility] Last Admin: 09/06/20 09:54 Dose: 250 mg Documented by: Donepezil HCl (Aricept) 10 mg PO HS [facility] Last Admin: 09/05/20 22:14 Dose: 10 mg Documented by: Haloperidol Lactate (Haldol) 0.5 mg PO DAILY [facility] Last Admin: 09/06/20 09:56 Dose: 0.5 mg Documented by: Lorazepam (Ativan) 0.25 mg PO Q12HR PRN PRN Reason: Anxiety Melatonin (Melatonin) 5 mg PO QHS [facility] Last Admin: 09/05/20 22:15 Dose: 5 mg Documented by: Memantine (Memantine) 10 mg PO DAILY [facility] Last Admin: 09/06/20 09:55 Dose: 10 mg Documented by: Risperidone (Risperdal) 0.5 mg PO BID [facility] Last Admin: 09/06/20 09:55 Dose: 0.5 mg Documented by: Results - Results Labs/Vitals: Laboratory Last Values Hemoglobin A1c 5.7 % (4-6) 09/02/20 06:43 Triglycerides 80 mg/dL (2-149) 09/02/20 06:43 Cholesterol 217 mg/dL (50-199) H 09/02/20 06:43 LDL Cholesterol Direct 161 mg/dL (50-130) H 09/02/20 06:43 HDL Cholesterol 43 mg/dL (40-59) 09/02/20 06:43 Cholesterol/HDL Ratio 5.04 % 09/02/20 06:43 TSH 1.900 mlU/mL (0.270-4.200) 09/02/20 06:43 Hepatitis A IgM Ab Non-reactive (NonReactive) 09/02/20 06:43 Hep Bs Antigen Non-reactive (Negative) 09/02/20 06:43 Hep B Core IgM Ab Non-reactive (NonReactive) 09/02/20 06:43 Hepatitis C Antibody Non-reactive (NonReactive) 09/02/20 06:43 Last Vital Signs Temp 98.1 F 09/06/20 08:58 Pulse 68 09/06/20 08:58 Resp 18 09/06/20 08:58 BP 107/74 09/06/20 08:58 Pulse Ox 92 09/06/20 08:58
[2020-09-06] MEDS: DONEPEZIL 10 MG TAB PO SCH (21:34)
[2020-09-06] MEDS: MELATONIN 5 MG TAB PO SCH (21:40)
--- NOTE | 2020-09-07 09:40 | Discharge Summary ---
Providers - Providers Date of Admission: 09/01/20 22:15 Date of discharge: 09/07/20 Attending physician: JOSE DÍAZ MD 09/01/20 18:51 Consult to Physician [CONS] Routine Comment: Consulting Provider: CORRY HERMAN Physician Instructions: Reason For Exam: Medical Management 09/02/20 10:23 Consult to Dietitian/Nutrition [CONS] Routine Physician Instructions: Reason For Exam: Reason for Consult: poor intake 09/02/20 10:24 Physical Therapy Evaluation and Treat [CONS] Routine Comment: Reason For Exam: unsteady gait Primary care physician: SECURITY VEHICLE PATROL OFFICER Hospitalization Reason for admission: Agression Admitting Diagnosis: F02.81 - DEMENTIA IN OTH DISEASES CLASSD ELSWHR W BEHAVIORAL DISTURB Condition: Stable Hospital course: The patient was provided inpatient psychiatric treatment with safe and supportive care, medication adjustment, adverse effect monitoring, medical evaluations, medical treatments, assessment and psycho-education. The patient's mood, cognition, behavior, moral support are improved and stabilized. St the time of discharge, the patient had no endangering behavior and no debilitating adverse effects. The patient agreed on potential consequences of no treatment and gave informed consent. Disposition: [place]-03 [facility] Time spent for discharge: 38 Allergies/Adverse Reactions: Allergies Fish Containing Products Allergy (Verified 09/01/20 17:28) Unknown Vital Signs: Last Vital Signs Temp 97.5 F L 09/06/20 19:53 Pulse 67 09/06/20 19:53 Resp 20 09/06/20 19:53 BP 129/61 09/06/20 19:53 Pulse Ox 98 09/06/20 19:53 Last Lab: Laboratory Last Values Hemoglobin A1c 5.7 % (4-6) 09/02/20 06:43 Triglycerides 80 mg/dL (2-149) 09/02/20 06:43 Cholesterol 217 mg/dL (50-199) H 09/02/20 06:43 LDL Cholesterol Direct 161 mg/dL (50-130) H 09/02/20 06:43 HDL Cholesterol 43 mg/dL (40-59) 09/02/20 06:43 Cholesterol/HDL Ratio 5.04 % 09/02/20 06:43 TSH 1.900 mlU/mL (0.270-4.200) 09/02/20 06:43 Hepatitis A IgM Ab Non-reactive (NonReactive) 09/02/20 06:43 Hep Bs Antigen Non-reactive (Negative) 09/02/20 06:43 Hep B Core IgM Ab Non-reactive (NonReactive) 09/02/20 06:43 Hepatitis C Antibody Non-reactive (NonReactive) 09/02/20 06:43 Core Measure Documentation - Palliative Care Palliative Care/ Comfort Measures: Not Applicable - Core Measures Any of the following diagnoses?: none Exam - Constitutional Vitals: Temp Pulse Resp BP Pulse Ox 97.5 F L 67 20 129/61 98 09/06/20 19:53 09/06/20 19:53 09/06/20 19:53 09/06/20 19:53 09/06/20 19:53 General appearance: Present: no acute distress - EENT Eyes: Present: PERRL, EOM intact ENT: hearing intact, clear oral mucosa - Neck Neck: Present: supple, normal ROM - Respiratory Respiratory effort: normal Plan Activity: advance as tolerated Weight Bearing Status: Weight Bear as Tolerated Care Plan Goals: Maintain good and stable mental health Plan of Treatment: The patient should be compliant with medications, not to use drugs, and not to drink alcohol. The patient understands that if suicidal ideas, homicidal ideas or any endangering feeling arise, the patient should seek assistance including, but not limited to crisis hotline, and emergency room. Assessment: Dementia with behavioral disturbance Follow up with: PRIMARY CARE, [Primary Care Provider] - 7 Days Prescriptions: Melatonin 5 mg PO HS #30 risperiDONE [RisperDAL] 0.5 mg PO BID #120 tablet
[2020-09-07] MEDS: amLODIPine 10 MG TAB PO SCH (09:43)
[2020-09-07] MEDS: DIVALPROEX SPRINKLE 125 MG CAP PO SCH ×3 (09:43→20:45)
[2020-09-07] MEDS: HALOPERIDOL LACTATE 10 MG/5 ML ORAL LIQD PO SCH (09:43)
[2020-09-07] MEDS: risperiDONE 0.25 MG TAB PO SCH ×2 (09:43→21:01)
[2020-09-07] MEDS: MEMANTINE 10 MG TAB PO SCH (09:43)
--- NOTE | 2020-09-07 12:52 | Progress Note ---
Subjective Date of service: 09/07/20 Principal diagnosis: Dementia with Behavioral Distrubance Subjective Comment: During my interview with the patient, is sitting in the dayroom. She is awake and feeding herself. Her disposition is quiet. She says she's doing "alright." She smiles and asks me "how you doing?" She is calm and cooperative. She's not mumbling much today. Reason for continued inpatient treatment: The patient has not exhibited any behavioral issues. She will be discharged as soon as placement is secured once covid and cxr are negative. REVIEW OF SYSTEMS Unable to obtain MENTAL STATUS EXAMINATION Unable to obtain Assessment and Plan (1) Dementia with Behavioral Disturbance Current Visit: Yes Status: Acute Treatment Plan Patient admitted for inpatient psychiatric evaluation, medication adjustment and close monitoring The patient's behavior, mood, sleep and appetite will be closely monitored. Patient enrolled in individual and group therapeutic sessions and encouraged to attend. Patient provided with a safe and structured environment. Patient's physical health needs will be addressed by the Hospitalist. Hospitalist Consulted Labs including CBC, CMP, Lipid profile and Hemoglobin A1C levels ordered for baseline reference No changes made today Social Assessment will be completed and the Emulsion Coater will work with patient and family to ensure a suitable and safe disposition Medication adjustment will be made as clinically indicated Usual Wellness Jain/Preservation: - Start Trazodone 50 mg po QHS & 50 mg po QHS PRN between 10 PM & 2 AM for insomnia - Start Melatonin 5 mg po QHS to promote circadian rhythm - Start [place]-3 for brain health, reduce impulsivity, and as adjunctive treatment for mood disorder, continue upon discharge given overall benefits. - Start B1 prophylaxis with 200 mg po for 5 days Estimated days: 4 Post hospital care: primary care provider, psychiatric provider Medications and Allergies Allergies Allergy/AdvReac Type Severity Reaction Status Date / Time Fish Containing Products Allergy Unknown Verified 09/01/20 17:28 Home Medications Medication Instructions Recorded Confirmed Last Taken Type Acetaminophen [Tylenol] 650 mg PO Q4HR PRN 09/02/20 09/02/20 Unknown History Divalproex Sprinkle [Depakote 250 mg PO TID 09/02/20 09/02/20 Unknown History Sprinkle] LORazepam [Lorazepam] 0.25 mg PO Q12HR PRN 09/02/20 09/02/20 Unknown History Memantine 10 mg PO DAILY 09/02/20 09/02/20 Unknown History amLODIPine 10 mg PO DAILY 09/02/20 09/02/20 Unknown History donepeziL [Aricept] 10 mg PO HS 09/02/20 09/02/20 Unknown History Melatonin 5 mg PO HS #30 09/07/20 Unknown Rx risperiDONE [RisperDAL] 0.5 mg PO BID #120 tablet 09/07/20 Unknown Rx Active Meds: Active Medications Acetaminophen (Tylenol) 650 mg PO Q4H PRN PRN Reason: Pain, Mild (1-3) Amlodipine Besylate (Amlodipine) 10 mg PO DAILY [facility] Last Admin: 09/07/20 09:43 Dose: 10 mg Documented by: Divalproex Sodium (Depakote Sprinkle) 250 mg PO TID [facility] Last Admin: 09/07/20 09:43 Dose: 250 mg Documented by: Donepezil HCl (Aricept) 10 mg PO HS [facility] Last Admin: 09/06/20 21:34 Dose: 10 mg Documented by: Haloperidol Lactate (Haldol) 0.5 mg PO DAILY [facility] Last Admin: 09/07/20 09:43 Dose: 0.5 mg Documented by: Lorazepam (Ativan) 0.25 mg PO Q12HR PRN PRN Reason: Anxiety Melatonin (Melatonin) 5 mg PO QHS [facility] Last Admin: 09/06/20 21:40 Dose: 5 mg Documented by: Memantine (Memantine) 10 mg PO DAILY [facility] Last Admin: 09/07/20 09:43 Dose: 10 mg Documented by: Risperidone (Risperdal) 0.5 mg PO BID [facility] Last Admin: 09/07/20 09:43 Dose: 0.5 mg Documented by: Results - Results Labs/Vitals: Laboratory Last Values Hemoglobin A1c 5.7 % (4-6) 09/02/20 06:43 Triglycerides 80 mg/dL (2-149) 09/02/20 06:43 Cholesterol 217 mg/dL (50-199) H 09/02/20 06:43 LDL Cholesterol Direct 161 mg/dL (50-130) H 09/02/20 06:43 HDL Cholesterol 43 mg/dL (40-59) 09/02/20 06:43 Cholesterol/HDL Ratio 5.04 % 09/02/20 06:43 TSH 1.900 mlU/mL (0.270-4.200) 09/02/20 06:43 Hepatitis A IgM Ab Non-reactive (NonReactive) 09/02/20 06:43 Hep Bs Antigen Non-reactive (Negative) 09/02/20 06:43 Hep B Core IgM Ab Non-reactive (NonReactive) 09/02/20 06:43 Hepatitis C Antibody Non-reactive (NonReactive) 09/02/20 06:43 Last Vital Signs Temp 97.5 F L 09/06/20 19:53 Pulse 67 09/06/20 19:53 Resp 20 09/06/20 19:53 BP 129/61 09/06/20 19:53 Pulse Ox 98 09/06/20 19:53
--- NOTE | 2020-09-07 14:10 | XRay Report ---
CHEST 1 VIEW INDICATION / CLINICAL INFORMATION: FOR PLACEMENT r/o TB. COMPARISON: None available. FINDINGS: SUPPORT DEVICES: None. HEART / MEDIASTINUM: No significant abnormality. LUNGS / PLEURA: No significant pulmonary or pleural abnormality. No pneumothorax. ADDITIONAL FINDINGS: No significant additional findings. IMPRESSION: No evidence of acute cardiopulmonary disease. Specifically, no evidence of active or remote tuberculo sis. Signer Name: Poncho Vieyra MD Signed: 09/07/2020 2:06 PM Workstation Name: [id number]
[2020-09-07] MEDS: MELATONIN 5 MG TAB PO SCH (21:01)
[2020-09-07] MEDS: DONEPEZIL 10 MG TAB PO SCH (21:01)
--- NOTE | 2020-09-08 08:18 | Discharge Summary ---
Providers - Providers Date of Admission: 09/01/20 22:15 Date of discharge: 09/08/20 Attending physician: JOSE DÍAZ MD 09/01/20 18:51 Consult to Physician [CONS] Routine Comment: Consulting Provider: CORRY HERMAN Physician Instructions: Reason For Exam: Medical Management 09/02/20 10:23 Consult to Dietitian/Nutrition [CONS] Routine Physician Instructions: Reason For Exam: Reason for Consult: poor intake 09/02/20 10:24 Physical Therapy Evaluation and Treat [CONS] Routine Comment: Reason For Exam: unsteady gait Primary care physician: [facility] MACHINE INSPECTOR Hospitalization Reason for admission: aggression Admitting Diagnosis: F02.81 - DEMENTIA IN OTH DISEASES CLASSD ELSWHR W BEHAVIORAL DISTURB Condition: Stable Hospital course: The patient was provided inpatient psychiatric treatment with safe and supportive care, medication adjustment, adverse effect monitoring, medical evaluations, medical treatments, assessment and psycho-education. The patient's mood, cognition, behavior, moral support are improved and stabilized. St the time of discharge, the patient had no endangering behavior and no debilitating adverse effects. The patient agreed on potential consequences of no treatment and gave informed consent. Disposition: [place]-03 [facility] Time spent for discharge: 39 Allergies/Adverse Reactions: Allergies Fish Containing Products Allergy (Verified 09/01/20 17:28) Unknown Vital Signs: Last Vital Signs Temp 97.8 F 09/07/20 19:36 Pulse 67 09/07/20 19:36 Resp 20 09/07/20 19:36 BP 112/60 09/07/20 19:36 Pulse Ox 96 09/07/20 19:36 Last Lab: Laboratory Last Values Hemoglobin A1c 5.7 % (4-6) 09/02/20 06:43 Triglycerides 80 mg/dL (2-149) 09/02/20 06:43 Cholesterol 217 mg/dL (50-199) H 09/02/20 06:43 LDL Cholesterol Direct 161 mg/dL (50-130) H 09/02/20 06:43 HDL Cholesterol 43 mg/dL (40-59) 09/02/20 06:43 Cholesterol/HDL Ratio 5.04 % 09/02/20 06:43 TSH 1.900 mlU/mL (0.270-4.200) 09/02/20 06:43 Hepatitis A IgM Ab Non-reactive (NonReactive) 09/02/20 06:43 Hep Bs Antigen Non-reactive (Negative) 09/02/20 06:43 Hep B Core IgM Ab Non-reactive (NonReactive) 09/02/20 06:43 Hepatitis C Antibody Non-reactive (NonReactive) 09/02/20 06:43 Core Measure Documentation - Palliative Care Palliative Care/ Comfort Measures: Not Applicable - Core Measures Any of the following diagnoses?: none Exam - Constitutional Vitals: Temp Pulse Resp BP Pulse Ox 97.8 F 67 20 112/60 96 09/07/20 19:36 09/07/20 19:36 09/07/20 19:36 09/07/20 19:36 09/07/20 19:36 General appearance: Present: no acute distress - EENT Eyes: Present: PERRL, EOM intact ENT: hearing intact, clear oral mucosa - Neck Neck: Present: supple, normal ROM - Respiratory Respiratory effort: normal Plan Activity: advance as tolerated Weight Bearing Status: Weight Bear as Tolerated Care Plan Goals: Maintain good and stable mental health Plan of Treatment: The patient should be compliant with medications, not to use drugs, and not to drink alcohol. The patient understands that if suicidal ideas, homicidal ideas or any endangering feeling arise, the patient should seek assistance including, but not limited to crisis hotline, and emergency room. Assessment: Dementia with behavioral disturbance Follow up with: PRIMARY CARE, [Primary Care Provider] - 7 Days Prescriptions: Melatonin 5 mg PO HS #30 risperiDONE [RisperDAL] 0.5 mg PO BID #120 tablet
[2020-09-08] MEDS: DIVALPROEX SPRINKLE 125 MG CAP PO SCH ×2 (09:00→14:00)
[2020-09-08] MEDS: HALOPERIDOL LACTATE 10 MG/5 ML ORAL LIQD PO SCH (09:05)
[2020-09-08] MEDS: MEMANTINE 10 MG TAB PO SCH (09:06)
[2020-09-08] MEDS: risperiDONE 0.25 MG TAB PO SCH (09:07)
[2020-09-08] MEDS: amLODIPine 10 MG TAB PO SCH (09:07)
[2020-09-08 09:22] VITALS: BP 127/77
--- NOTE | 2020-09-08 13:34 | Progress Note ---
Assessment and Plan - Patient Problems (1) Vascular dementia of acute onset with behavioral disturbance Current Visit: Yes Status: Acute Plan to address problem: Verbal prompting, verbal redirection, benzodiazepine therapy as clinically indicated, (2) Cerebral atherosclerosis Current Visit: Yes Status: Acute Plan to address problem: Supportive care, risk factor reduction, low-cholesterol diet. History Interval history: 80 YO Female with Cerebral Atherosclerosis, Vascular Dementia with Behavioral Disturbance admitted to [facility] for Psychiatric stabilization. Patient seen and evaluated in the recreation room. Patient minimally cooperative with exam and interview. No reported nursing events. Patient denies pain. Hospitalist Physical - Constitutional Vitals: Temp Pulse Resp BP Pulse Ox 97.8 F 94 H 20 127/77 96 09/07/20 19:36 09/08/20 09:07 09/07/20 19:36 09/08/20 09:07 09/07/20 19:36 General appearance: Present: no acute distress - EENT Eyes: Present: PERRL, EOM intact ENT: hearing intact - Neck Neck: Present: supple - Respiratory Respiratory effort: normal Respiratory: bilateral: CTA - Cardiovascular Rhythm: regular Heart Sounds: Present: S1 & S2 - Extremities Extremities: No edema Peripheral Pulses: within normal limits - Abdominal General gastrointestinal: soft, non-tender, non-distended - Integumentary Integumentary: Present: clear, dry - Psychiatric Psychiatric: cooperative - Neurologic Neurologic: CNII-XII intact, gait normal - Allied Health Allied health notes reviewed: PT, OT Results - Labs Labs: Laboratory Last Values Hemoglobin A1c 5.7 % (4-6) 09/02/20 06:43 Triglycerides 80 mg/dL (2-149) 09/02/20 06:43 Cholesterol 217 mg/dL (50-199) H 09/02/20 06:43 LDL Cholesterol Direct 161 mg/dL (50-130) H 09/02/20 06:43 HDL Cholesterol 43 mg/dL (40-59) 09/02/20 06:43 Cholesterol/HDL Ratio 5.04 % 09/02/20 06:43 TSH 1.900 mlU/mL (0.270-4.200) 09/02/20 06:43 Hepatitis A IgM Ab Non-reactive (NonReactive) 09/02/20 06:43 Hep Bs Antigen Non-reactive (Negative) 09/02/20 06:43 Hep B Core IgM Ab Non-reactive (NonReactive) 09/02/20 06:43 Hepatitis C Antibody Non-reactive (NonReactive) 09/02/20 06:43 Luke/IV: Voiding Method Toilet Active Medications - Current Medications Current Medications: Generic Name Dose Route Start Last Admin Trade Name Freq PRN Reason Stop Dose Admin Acetaminophen 650 mg 09/02/20 12:00 Tylenol PO Q4H PRN Pain, Mild (1-3) Amlodipine Besylate 10 mg 09/02/20 12:00 09/08/20 09:07 Amlodipine PO 10 mg DAILY [facility] Administration Divalproex Sodium 250 mg 09/02/20 14:00 09/08/20 09:00 Depakote Sprinkle PO 250 mg TID [facility] Administration Donepezil HCl 10 mg 09/02/20 22:00 09/07/20 21:01 Aricept PO 10 mg HS [facility] Administration Haloperidol Lactate 0.5 mg 09/02/20 12:00 09/08/20 09:05 Haldol PO 0.5 mg DAILY [facility] Administration Lorazepam 0.25 mg 09/02/20 11:30 Ativan PO Q12HR PRN Anxiety Melatonin 5 mg 09/02/20 22:00 09/07/20 21:01 Melatonin PO 5 mg QHS [facility] Administration Memantine 10 mg 09/02/20 12:00 09/08/20 09:06 Memantine PO 10 mg DAILY [facility] Administration Risperidone 0.5 mg 09/05/20 22:00 09/08/20 09:07 Risperdal PO 0.5 mg BID [facility] Administration Nutrition/Malnutrition Assess - Dietary Evaluation Nutrition/Malnutrition Findings: Nutrition Notes Start: 09/02/20 10:53 Freq: Status: Active Protocol: Document 09/07/20 13:14 AL (Rec: 09/07/20 13:20 AL [id number]) Co-Sign 09/07/20 13:14 MK Nutrition Notes Initial or Follow up Reassessment Other Pertinent Diagnosis dementia, schizophrenia, suicidal ideation, UTI Current Diet Regular Labs/Tests Reviewed Pertinent Medications Reviewed Height 5 ft 6 in Weight 74.12 kg [place] Body Weight (kg) 59.09 BMI 26.4 Weight Status Appropriate Subjective/Other Information RN reports that patient is eating well. Patient is eating 50-75% of meals and drinking 75% of ONS, per chart. Percent of energy/protein needs met: 68%/60% Burn Absent Trauma Absent Difficulty In Swallowing,Chewing Food Allergy Yes Current % PO Negligible Minimum of two criteria No Muscle Mass Mild Depletion (non-severe) #1 Nutrition Diagnosis Inadequate oral intake As Evidenced by Signs and Symptoms pt consuming 50-75% of meals and 75% of ONS Diagnosis Progress(for reassessment Improved documentation) Is patient on ventilator? No Is Patient Ambulatory and/or Out of Bed Yes REE-([facility]-ambulatory/OOB) [ 1589.835 NUTR.MSJOOB] Calculation Used for Recommendations [facility] Additional Notes Pro:74-89 g (1-1.2 g/kg) Fluid: 1 ml/kcal Nutrition Intervention Change Diet Order: Continue Add Supplement/Snack (indicate name/kcal Ensure Clear Daily /protein ) Provides kCal: 240 Provides Protein (gm) 8 Goal #1 Meet at least 80% energy and protein needs via PO and ONS intakes Anticipated Discharge Needs: Unable to determine at this time Follow-Up By: 09/12/20 Additional Comments F/U for PO/ONS intakes
--- NOTE | 2020-09-08 13:48 | Progress Note ---
Assessment and Plan - Patient Problems (1) Vascular dementia of acute onset with behavioral disturbance Current Visit: Yes Status: Acute Plan to address problem: Verbal prompting, verbal redirection, benzodiazepine therapy as clinically indicated, (2) Cerebral atherosclerosis Current Visit: Yes Status: Acute Plan to address problem: Supportive care, risk factor reduction, low-cholesterol diet. History Interval history: 80 YO Female with Cerebral Atherosclerosis, Vascular Dementia with Behavioral Disturbance admitted to [facility] for Psychiatric stabilization. Patient seen and evaluated in the recreation room. Patient minimally cooperative with exam and interview. No reported nursing events. Patient denies pain. Hospitalist Physical - Constitutional Vitals: Temp Pulse Resp BP Pulse Ox 97.8 F 94 H 20 127/77 96 09/07/20 19:36 09/08/20 09:07 09/07/20 19:36 09/08/20 09:07 09/07/20 19:36 General appearance: Present: no acute distress - EENT Eyes: Present: PERRL, EOM intact ENT: hearing intact - Neck Neck: Present: supple - Respiratory Respiratory effort: normal Respiratory: bilateral: diminished - Cardiovascular Rhythm: regular Heart Sounds: Present: S1 & S2 - Extremities Extremities: no ischemia Peripheral Pulses: within normal limits - Abdominal General gastrointestinal: soft, non-tender, non-distended - Integumentary Integumentary: Present: clear, dry - Psychiatric Psychiatric: cooperative - Neurologic Neurologic: CNII-XII intact Results - Labs Labs: Laboratory Last Values Hemoglobin A1c 5.7 % (4-6) 09/02/20 06:43 Triglycerides 80 mg/dL (2-149) 09/02/20 06:43 Cholesterol 217 mg/dL (50-199) H 09/02/20 06:43 LDL Cholesterol Direct 161 mg/dL (50-130) H 09/02/20 06:43 HDL Cholesterol 43 mg/dL (40-59) 09/02/20 06:43 Cholesterol/HDL Ratio 5.04 % 09/02/20 06:43 TSH 1.900 mlU/mL (0.270-4.200) 09/02/20 06:43 Hepatitis A IgM Ab Non-reactive (NonReactive) 09/02/20 06:43 Hep Bs Antigen Non-reactive (Negative) 09/02/20 06:43 Hep B Core IgM Ab Non-reactive (NonReactive) 09/02/20 06:43 Hepatitis C Antibody Non-reactive (NonReactive) 09/02/20 06:43 Luke/IV: Voiding Method Toilet Active Medications - Current Medications Current Medications: Generic Name Dose Route Start Last Admin Trade Name Freq PRN Reason Stop Dose Admin Acetaminophen 650 mg 09/02/20 12:00 Tylenol PO Q4H PRN Pain, Mild (1-3) Amlodipine Besylate 10 mg 09/02/20 12:00 09/08/20 09:07 Amlodipine PO 10 mg DAILY [facility] Administration Divalproex Sodium 250 mg 09/02/20 14:00 09/08/20 09:00 Depakote Sprinkle PO 250 mg TID [facility] Administration Donepezil HCl 10 mg 09/02/20 22:00 09/07/20 21:01 Aricept PO 10 mg HS [facility] Administration Haloperidol Lactate 0.5 mg 09/02/20 12:00 09/08/20 09:05 Haldol PO 0.5 mg DAILY [facility] Administration Lorazepam 0.25 mg 09/02/20 11:30 Ativan PO Q12HR PRN Anxiety Melatonin 5 mg 09/02/20 22:00 09/07/20 21:01 Melatonin PO 5 mg QHS [facility] Administration Memantine 10 mg 09/02/20 12:00 09/08/20 09:06 Memantine PO 10 mg DAILY [facility] Administration Risperidone 0.5 mg 09/05/20 22:00 09/08/20 09:07 Risperdal PO 0.5 mg BID [facility] Administration Nutrition/Malnutrition Assess - Dietary Evaluation Nutrition/Malnutrition Findings: Nutrition Notes Start: 09/02/20 10:53 Freq: Status: Active Protocol: Document 09/07/20 13:14 AL (Rec: 09/07/20 13:20 AL [id number]) Co-Sign 09/07/20 13:14 Nutrition Notes Initial or Follow up Reassessment Other Pertinent Diagnosis dementia, schizophrenia, suicidal ideation, UTI Current Diet Regular Labs/Tests Reviewed Pertinent Medications Reviewed Height 5 ft 6 in Weight 74.12 kg [place] Body Weight (kg) 59.09 BMI 26.4 Weight Status Appropriate Subjective/Other Information RN reports that patient is eating well. Patient is eating 50-75% of meals and drinking 75% of ONS, per chart. Percent of energy/protein needs met: 68%/60% Burn Absent Trauma Absent Difficulty In Swallowing,Chewing Food Allergy Yes Current % PO Negligible Minimum of two criteria No Muscle Mass Mild Depletion (non-severe) #1 Nutrition Diagnosis Inadequate oral intake As Evidenced by Signs and Symptoms pt consuming 50-75% of meals and 75% of ONS Diagnosis Progress(for reassessment Improved documentation) Is patient on ventilator? No Is Patient Ambulatory and/or Out of Bed Yes REE-([facility]-ambulatory/OOB) [ 1589.835 NUTR.MSJOOB] Calculation Used for Recommendations [facility] Additional Notes Pro:74-89 g (1-1.2 g/kg) Fluid: 1 ml/kcal Nutrition Intervention Change Diet Order: Continue Add Supplement/Snack (indicate name/kcal Ensure Clear Daily /protein ) Provides kCal: 240 Provides Protein (gm) 8 Goal #1 Meet at least 80% energy and protein needs via PO and ONS intakes Anticipated Discharge Needs: Unable to determine at this time Follow-Up By: 09/12/20 Additional Comments F/U for PO/ONS intakes
== END 2020-09-08 17:45 | DRG 884 ==
LOC: UNDOADMIN 18:01 → 3A 18:01 → 5A 22:15
PROVIDERS: ADMIT Psychiatry & Neurology Psychiatry; ATTEND Psychiatry & Neurology Psychiatry
DX: F03.91 Unspecified dementia, unspecified severity, with behavioral disturbance (principal); R45.851 Suicidal ideations; I67.2 Cerebral atherosclerosis; Z20.828 Contact with and (suspected) exposure to other viral communicable diseases; Z79.899 Other long term (current) drug therapy; Z91.013 Allergy to seafood
CPT/HCPCS: 36415; 71045; 80053; 80061; 80074; 80307; 80320; 81001; 83036; 84443; 85025; 87086; G0378; G0480; U0003